=== PATIENT | female | born 1930 | race Caucasian/White ===

== ENCOUNTER 2022-04-26 18:03 | Inpatient (IN) | payer MEDICARE, OTHER ==
[~2022-04-26] VITALS: Ht 157.5 cm; Wt 52.2 kg
--- NOTE | 2022-04-26 18:05 | NUR ---
PT BIBA TO BED 10
[2022-04-26 18:07] VITALS: BP 143/91
[2022-04-26] MEDS ORDERED: ALBUTEROL 0.083% 2.5 MG/3 ML NEBU INH ONE (18:10)
--- NOTE | 2022-04-26 18:33 | NUR ---
FLU AND EUN SWABS COLLECTED AND HANDED TO TOOL INSPECTOR BERLIN
--- NOTE | 2022-04-26 18:38 | NUR ---
89/F BOWENJovita FROM [facility]. PER EMS STAFF CALLED 911 STATING PATIENT WITH SUDDEN ONSET OF SOB, PER EMS PATIENTS O2 89% ON ROOM AIR AND WAS PLACED ON 2L NC BRINGING O2 UP TO 96%. PATIENT SHAKES AND NODS HEAD TO ANSWER YES AND NO TO QUESTIONS, DENIES SOB, CP. PER EMS PATIENT NOT ON O2 AT BASELINE.
[2022-04-26 18:42] LABS: BASOPHILS # (AUTO) 0.1 K/uL (0.00-0.22); BASOPHILS % (AUTO) 1.1 % (0.0-2.0); EOSINOPHILS # (AUTO) 0.4 K/uL (0-0.4); EOSINOPHILS % (AUTO) 4.7 % (0.0-4.0); HEMATOCRIT 40.3 % (36-48); HEMOGLOBIN 13.7 g/dL (12.0-16.0); LYMPHOCYTES # (AUTO) 1.4 K/uL (2.5-16.5); LYMPHOCYTES % (AUTO) 14.8 % (20.5-51.1); MEAN CORPUSCULAR HEMOGLOBIN 31 pg (27-31); MEAN CORPUSCULAR HGB CONC 34 g/dL (33-37); MEAN CORPUSCULAR VOLUME 89.8 fL (80-94); MONOCYTES # (AUTO) 0.5 K/uL (0.8-1.0); MONOCYTES % (AUTO) 5.6 % (1.7-9.3); NEUTROPHILS # (AUTO) 6.9 K/uL (1.8-7.7); NEUTROPHILS % (AUTO) 73.8 % (42.2-75.2); PLATELET COUNT (AUTO) 347 K/uL (140-450); RED BLOOD CELL COUNT(AUTO) 4.49 MIL/uL (4.20-5.40); RED CELL DISTRIBUTION WIDTH 15.6 % (11.6-13.7); WHITE BLOOD COUNT (AUTO) 9.4 K/uL (4.8-10.8)
[2022-04-26] MEDS ORDERED: XALOS OP (18:50)
[2022-04-26] MEDS ORDERED: DOCU-299 PO (18:50)
[2022-04-26] MEDS ORDERED: CHOL1TAB11 PO (18:50)
[2022-04-26] MEDS ORDERED: BACL10TA4 PO (18:50)
[2022-04-26] MEDS ORDERED: SIMV-372 PO (18:50)
[2022-04-26] MEDS ORDERED: ACET-2619 PO (18:50)
[2022-04-26] MEDS ORDERED: METO25TE2 PO (18:50)
[2022-04-26] MEDS ORDERED: SENN-73 PO (18:50)
[2022-04-26] MEDS ORDERED: ALEN70TA85 PO (18:50)
[2022-04-26] MEDS ORDERED: ALBU3SOL83 IH (18:50)
[2022-04-26] MEDS ORDERED: OSC500 PO (18:50)
[2022-04-26] MEDS ORDERED: ASPI-1749 PO (18:50)
[2022-04-26] MEDS ORDERED: SYN.1 PO (18:50)
[2022-04-26 19:07] LABS: ALBUMIN 2.8 g/dL (3.4-5.0); ANION GAP 14.5 (8-16); ASPARTATE AMINOTRANSFERASE 33 U/L (15-37); CARBON DIOXIDE 23.5 mmol/L (21-32); CHLORIDE 95 mmol/L (98-107); CREATININE 0.8 mg/dL (0.6-1.3); GLUCOSE 156 mg/dL (74-106); SODIUM SERUM 129 mmol/L (136-145); TOTAL BILIRUBIN 0.6 mg/dL (0.0-1.0); UREA NITROGEN, BLOOD 19 mg/dL (7-18)
[2022-04-26] MEDS ORDERED: AZITHROMYCIN 500 MG in DEXTROSE 5% 250 ML IV ONE (19:15)
--- NOTE | 2022-04-26 19:17 | NUR ---
Pt report given to PHILOMENA ALDANA. Transfer of care at this time.
--- NOTE | 2022-04-26 19:21 | NUR ---
RT at bedside.
--- NOTE | 2022-04-26 19:28 | NUR ---
PLACED PT ON HFNC AT 30LPM 35% FIO2 DUE TO WOB. PT SPO2 IS 95%, WOB IMPROVING, WILL CONT TO MONITOR PT.
[2022-04-26] MEDS ORDERED: cefTRIAXone 1,000 MG VIAL ONE (19:29)
[2022-04-26 19:36] VITALS: BP 119/74
[2022-04-26] MEDS ORDERED: AZITHROMYCIN 500 MG INJ VIAL IV ONE (20:12)
[2022-04-26] MEDS ORDERED: DEXT 5% / NACL 0.9% 500 ML IV ONE (20:25)
[2022-04-26] MEDS ORDERED: MAG SULF 2000 MG/WATER PREMIX 50 ML IV PRN (20:30)
[2022-04-26] MEDS ORDERED: ACETAMINOPHEN 325 MG TAB PO PRN (20:30)
[2022-04-26] MEDS ORDERED: INSULIN LISPRO SLIDING SCALE 100 UNITS/ML VIAL SUBQ PRN (20:30)
[2022-04-26] MEDS ORDERED: MORPHINE SULFATE 2 MG/ML SYR IVP PRN (20:30)
[2022-04-26] MEDS ORDERED: ZOLPIDEM 10 MG TAB PO PRN (20:30)
[2022-04-26] MEDS ORDERED: LORazepam 2 MG/ML VIAL IVP PRN (20:30)
[2022-04-26] MEDS ORDERED: ONDANSETRON 4 MG/2 ML VIAL IVP PRN (20:30)
[2022-04-26] MEDS ORDERED: DEXTROSE 50% 50 ML SYR IVP PRN (20:30)
[2022-04-26] MEDS ORDERED: DOCUSATE SODIUM 100 MG GELCAP PO PRN (20:30)
[2022-04-26] MEDS ORDERED: POTASSIUM CHLORIDE 10 MEQ TABER PO PRN (20:30)
[2022-04-26] MEDS: BLOOD GLUCOSE MONITORING 1 DEV DEV FS SCH (21:39)
[2022-04-26 23:06] VITALS: BP 96/57
[2022-04-27 02:38] VITALS: BP 87/43
--- NOTE | 2022-04-27 02:40 | NUR ---
RT at bedside.
--- NOTE | 2022-04-27 05:07 | NUR ---
Pt noted with episode of incontinence to urine. Deisy care provided.
[2022-04-27] MEDS: BLOOD GLUCOSE MONITORING 1 DEV DEV FS SCH ×4 (07:30→21:00)
--- NOTE | 2022-04-27 07:30 | NUR ---
pt report received from ishmael casey. pt laying in bed aox2, calm and cooperative, denies any pain, pt connected to monitor w vss on high carleen.
--- NOTE | 2022-04-27 07:30 | NUR ---
Care endorsed to PHILOMENA Coates for continuity of care. Questions/concerns answered.
[2022-04-27] MEDS: LEVOTHYROXINE 0.1 MG TAB PO SCH (07:33)
--- NOTE | 2022-04-27 08:30 | NUR ---
RECIEVED PATIENT FROM ER. AWAKE ORIENTED X2. PATIENT BEDBOUND.
[2022-04-27] MEDS: ASPIRIN 81 MG TAB.CHEW PO SCH (10:06)
[2022-04-27 12:00] VITALS: BP 102/70
--- NOTE | 2022-04-27 15:01 | NUR ---
DC PLANNING ASSESSMENT COMPLETE PLEASE REFER TO ASSESSMENT FOR ADDITIONAL DETAILS PER NOTES PT HAS HX OF DEMENTIA THEREFORE, SW OUTREACHED TO [facility] TO GATHER COLLAT INFO. PT IS A 89 YR OLD FEMALE ADMITTED TO [facility] FROM HOME WITH DX OF ACUTE RESP FAILURE. PT HAS PAST MEDICAL HX OF HYPERTENSION, HYPERLIPIDEMIA, HYPOTHYROIDISM AND DEMENTIA. PT IS REPORTED TO BE WC BOUND AND REQUIRES ASSISTANCE WITH ADL'S THAT [facility] AIDS WITH PT IS REPORTED TO BE IN [facility] CARE WITH [facility], ADMISSION DATE 01/06/21 PAULETTE REPORTS DC PLAN IS FOR PT TO RETURN TO [facility]. ONCE STABLE Addendum: 04/27/22 at 1504 by Jil CARLISLE Amended: Links added.
[2022-04-27 16:00] VITALS: BP 123/100
--- NOTE | 2022-04-27 17:25 | NUR ---
PATIENT HAS BEEN SCREENED AND CATEGORIZED MODERATE NUTRITION RISK. PATIENT WILL BE SEEN WITHIN 3-5 DAYS OF ADMISSION. 04/29/ REVIEWED BY ANNEMARIE STOCKTON RD
--- NOTE | 2022-04-27 18:43 | NUR ---
PATIENT NIECE/PRIMARY CONTACT CALLED. PROPER INFORMATION EXCHANGED.
--- NOTE | 2022-04-27 19:20 | NUR ---
ENDORSED PT TO STRIP STAMP STRAIGHTENER NURSE FOR CONTINUITY OF CARE. PT STABLE AT THIS TIME.
--- NOTE | 2022-04-27 19:25 | NUR ---
RECEIVED PT FROM AM NURSE FOR CONTINUITY OF CARE.PT IS STABLE
[2022-04-27 20:00] VITALS: BP 124/70
[2022-04-27] MEDS: AZITHROMYCIN 500 MG in DEXTROSE 5% 250 ML IV SCH (20:57)
[2022-04-28] VITALS: BP 125/79
--- NOTE | 2022-04-28 01:00 | NUR ---
PATIENT ASLEEP, ALL SAFETY MEASURES IN PLACE, CALL LIGHT EITHIN EASY REACH
[2022-04-28 04:00] VITALS: BP 129/74
[2022-04-28] MEDS ORDERED: PIPERACILLIN/TAZOBACTAM 2.25 GM VIAL IV ONE (05:10)
[2022-04-28] MEDS: PIPERACILLIN/TAZOBACTAM 2.25 GM in DEXTROSE 5% 50 ML IV SCH ×3 (05:19→21:00)
[2022-04-28] MEDS: LEVOTHYROXINE 0.1 MG TAB PO SCH (06:16)
[2022-04-28] MEDS: BLOOD GLUCOSE MONITORING 1 DEV DEV FS SCH ×4 (06:59→20:59)
[2022-04-28 07:01] LABS: ANION GAP 10.6 (8-16); CARBON DIOXIDE 27.2 mmol/L (21-32); CHLORIDE 99 mmol/L (98-107); CREATININE 0.5 mg/dL (0.6-1.3); GLUCOSE 97 mg/dL (74-106); POTASSIUM 3.8 mmol/L (3.5-5.1); SODIUM SERUM 133 mmol/L (136-145); UREA NITROGEN, BLOOD 9 mg/dL (7-18)
[2022-04-28 07:20] LABS: BASOPHILS # (AUTO) 0.1 K/uL (0.00-0.22); BASOPHILS % (AUTO) 1.1 % (0.0-2.0); HEMATOCRIT 36.1 % (36-48); HEMOGLOBIN 11.9 g/dL (12.0-16.0); LYMPHOCYTES # (AUTO) 1.7 K/uL (2.5-16.5); LYMPHOCYTES % (AUTO) 22.3 % (20.5-51.1); MEAN CORPUSCULAR HEMOGLOBIN 30 pg (27-31); MEAN CORPUSCULAR HGB CONC 33 g/dL (33-37); MEAN CORPUSCULAR VOLUME 91.3 fL (80-94); MONOCYTES # (AUTO) 0.7 K/uL (0.8-1.0); MONOCYTES % (AUTO) 8.9 % (1.7-9.3); NEUTROPHILS # (AUTO) 4.1 K/uL (1.8-7.7); NEUTROPHILS % (AUTO) 54.7 % (42.2-75.2); PLATELET COUNT (AUTO) 226 K/uL (140-450); RED BLOOD CELL COUNT(AUTO) 3.95 MIL/uL (4.20-5.40); RED CELL DISTRIBUTION WIDTH 15.4 % (11.6-13.7)
--- NOTE | 2022-04-28 07:20 | NUR ---
ENDORSED PATIENT TO AM NURSE FOR CONTINUITY OF CARE. PT IS STABLE
--- NOTE | 2022-04-28 07:24 | NUR ---
RECIEVED PATIENT FROM THERMAL SURFACING MACHINE OPERATOR NURSE FOR CONTINUITY OF CARE
[2022-04-28 07:32] LABS: WHITE BLOOD COUNT (AUTO) 7.5 K/uL (4.8-10.8)
[2022-04-28 08:00] VITALS: BP 108/62
[2022-04-28] MEDS: ASPIRIN 81 MG TAB.CHEW PO SCH (08:58)
[2022-04-28 12:00] VITALS: BP 127/78
[2022-04-28] MEDS: HYDRAGUARD CREAM TP SCH (13:00)
--- NOTE | 2022-04-28 19:30 | NUR ---
ENDORSED PT TO COURT ORDERLY NURSE FOR CONTINUITY OF CARE. PT STABLE AT THIS TIME.
--- NOTE | 2022-04-28 19:35 | NUR ---
RECEIVED PT FROM AM NURSE FOR CONTINUITY OF CARE.PT IS STABLE
[2022-04-28] MEDS: ALBUTEROL SULFATE/IPRATROPIU 3 ML SOL IH SCH ×2 (20:19→23:58)
[2022-04-28] MEDS: BUDESONIDE 0.5 MG/2 ML NEBU INH SCH (20:20)
[2022-04-28] MEDS: AZITHROMYCIN 500 MG in DEXTROSE 5% 250 ML IV SCH (21:00)
--- NOTE | 2022-04-28 23:59 | NUR ---
PT SATURATION 97% ON ROOM AIR NO WHEEZES, PT ASKED "TO NOT HAVE THE TREATMENT AND ATTEMPTED TO REMOVE MASK DURING EARLIER TREATMENT." WILL CONTINUE TO MONITOR
[2022-04-29] MEDS: HYDRAGUARD CREAM TP SCH ×2 (01:41→13:16)
[2022-04-29] MEDS: PIPERACILLIN/TAZOBACTAM 2.25 GM in DEXTROSE 5% 50 ML IV SCH ×3 (05:02→21:00)
[2022-04-29] MEDS: LEVOTHYROXINE 0.1 MG TAB PO SCH (06:09)
[2022-04-29] MEDS: BLOOD GLUCOSE MONITORING 1 DEV DEV FS SCH ×4 (06:51→21:42)
[2022-04-29 07:28] LABS: BASOPHILS # (AUTO) 0.1 K/uL (0.00-0.22); BASOPHILS % (AUTO) 1.1 % (0.0-2.0); EOSINOPHILS # (AUTO) 0.8 K/uL (0-0.4); EOSINOPHILS % (AUTO) 14.2 % (0.0-4.0); HEMATOCRIT 35.2 % (36-48); HEMOGLOBIN 12.1 g/dL (12.0-16.0); LYMPHOCYTES # (AUTO) 1.3 K/uL (2.5-16.5); LYMPHOCYTES % (AUTO) 22.4 % (20.5-51.1); MEAN CORPUSCULAR HEMOGLOBIN 31 pg (27-31); MEAN CORPUSCULAR HGB CONC 34 g/dL (33-37); MEAN CORPUSCULAR VOLUME 90.2 fL (80-94); MONOCYTES # (AUTO) 0.5 K/uL (0.8-1.0); MONOCYTES % (AUTO) 9.1 % (1.7-9.3); NEUTROPHILS # (AUTO) 3.2 K/uL (1.8-7.7); NEUTROPHILS % (AUTO) 53.2 % (42.2-75.2); PLATELET COUNT (AUTO) 314 K/uL (140-450); RED BLOOD CELL COUNT(AUTO) 3.91 MIL/uL (4.20-5.40); RED CELL DISTRIBUTION WIDTH 15.3 % (11.6-13.7)
[2022-04-29 07:54] LABS: ANION GAP 13.4 (8-16); CARBON DIOXIDE 26.3 mmol/L (21-32); CHLORIDE 102 mmol/L (98-107); CREATININE 0.7 mg/dL (0.6-1.3); GLUCOSE 105 mg/dL (74-106); POTASSIUM 3.7 mmol/L (3.5-5.1); SODIUM SERUM 138 mmol/L (136-145); UREA NITROGEN, BLOOD 11 mg/dL (7-18)
[2022-04-29 08:00] VITALS: BP 106/59
[2022-04-29] MEDS: ASPIRIN 81 MG TAB.CHEW PO SCH (09:12)
[2022-04-29] MEDS ORDERED: AZIT250T11 PO (10:24)
[2022-04-29 12:00] VITALS: BP 100/55
[2022-04-29 16:00] VITALS: BP 110/53
--- NOTE | 2022-04-29 16:10 | NUR ---
RECEIVED ORDER FOR PT TO GO BACK TO [facility]. FAXED MULTIPLE TIMES TODAY [facility] LOCATED AT [address] [place] [phone]. TI AT [facility] WHO SAID THEY DIDN'T RECEIVE ANY BUT THE LAST ONE SENT AGAIN AT 1530. AND THAT THE DOA WILL REVIEW IT TOMORROW WHEN THEY GET IN. [facility] GAVE TRANSPORTATION AUTH#[id number]. WILL CONTACT TI FIRST THING 04/30/2022 AT 0900. Addendum: 04/30/22 at 1056 by MARIAH VARGAS SPOKE WITH TI AT [facility] LOCATED AT [address] [place] [phone]. PT WAS ACCEPPTED BACK AND WILL BE GOING TO ROOM 122-B UNDER DR GUZMAN. PER LYNDSAY AT [facility] TRANSPORTATION IS SUPPOSED TO BE SET UP WITH F[facility]. BUT WHEN I CALLED TO SETUP TRANSPORTATION WITH [facility] MARGARETH INFORMED ME THAT SINCE STARTING LAST WEEK THEY STOPPED TAKING [facility] GURNEY TRANSPORTATION. CALLED TI AT [facility] TO SEE IF SHE WOULD BE ABLE TO HELP US OUT AND PROVIDE TRANSPORTATION BUT SHE SAID NO. TRANSPORTATION SET UP WITH STACEY AT [facility] TRANSPORTATION FOR A GURNEY TRANSPORTATION WITH A MANUFACTURING DIRECTOR TIME STILL UNKNOWN STACEY STATED TO KEEP CALLING FOR UPDATES AND IT WOULDN'T BE A SAME DAY MANUFACTURING DIRECTOR. MOTORCYCLE SALES ASSOCIATE HERMNIIO WILL CONTACT LYNDSAY AND ASK WHY SHE WOULDN'T BE ABLE TO GO TODAY WHEN SHE IS A DISCHARGED PATIENT. Addendum: 04/30/22 at 1405 by MARIAH VARGAS CM CANCELED TRANSPORTATION WITH [facility]. WAS ABLE TO GET TRANSPORTATION WITH [facility] WITH MANUFACTURING DIRECTOR TIME FOR [phone]. SPOKE WITH ALEX DASILVA AWARE OF THE ABOVE INFORMATION.
[2022-04-29] MEDS ORDERED: CHLORHEXADINE GLUC 2% CLOTH TP SCH (17:00)
[2022-04-29] MEDS ORDERED: MUPIROCIN CA NASAL 2% 1GM TUBE NS SCH (17:00)
[2022-04-29] MEDS: BUDESONIDE 0.5 MG/2 ML NEBU INH SCH ×2 (17:20→19:27)
[2022-04-29] MEDS: ALBUTEROL SULFATE/IPRATROPIU 3 ML SOL IH SCH ×2 (17:21→19:24)
--- NOTE | 2022-04-29 19:34 | NUR ---
RECEIVED REPORT FROM DAY SHIFT NURSE FOR CONTINUITY OF CARE. PT IS AWAKE, ALERT AND ORIENTED X2. NO COMPLAINTS OF PAIN AT THIS TIME. WAS ON HIFLOW BUT IS NOW ON ROOM AIR WITH NO SIGNS OF DISTRESS NOTED. PT REMOVED IV, WILL ATTEMPT TO START A NEW ONE. BRUISING ON UPPER EXTREMITIES BUT OTHERWISE SKIN IS INTACT. WILL MONITOR THROUGHOUT SHIFT.
[2022-04-29 20:00] VITALS: BP 117/63
--- NOTE | 2022-04-29 20:00 | NUR ---
Patient's Plan of Care was discussed and reviewed with ASSISTANT CHIEF ENGINEER: SARANYA TOBIAS
[2022-04-29] MEDS: AZITHROMYCIN 500 MG in DEXTROSE 5% 250 ML IV SCH (22:00)
--- NOTE | 2022-04-29 22:00 | NUR ---
NEW IV WAS INSERTED ON LEFT WRIST, 22 GAUGE, INTACT AND PATENT. WILL CONTINUE TO MONITOR.
[2022-04-30] VITALS: BP 125/60
[2022-04-30] MEDS ORDERED: ZOLPIDEM 10 MG TAB ONE (00:06)
--- NOTE | 2022-04-30 00:44 | NUR ---
PT EXPERIENCING RESTLESS AND DIFFICULTY SLEEPING. ORDER FOR AMBIEN 10MG ON THE EMAR, BUT DID NOT SHOW IN THE PRN MEDICATIONS ON THE PIXUS, SO MEDICATION WAS PULLED FROM THE PIXUS USING THE STOCKED MEDS OPTION. MEDICATION ADMINISTERED, NO SIGNS OF DISTRESS NOTED, WILL CONTINUE TO MONITOR.
[2022-04-30] MEDS: ALBUTEROL SULFATE/IPRATROPIU 3 ML SOL IH SCH ×2 (01:00→07:44)
[2022-04-30] MEDS: HYDRAGUARD CREAM TP SCH ×2 (01:46→12:04)
[2022-04-30 04:00] VITALS: BP 145/73
[2022-04-30] MEDS: PIPERACILLIN/TAZOBACTAM 2.25 GM in DEXTROSE 5% 50 ML IV SCH ×2 (05:22→12:05)
[2022-04-30 06:05] LABS: BASOPHILS # (AUTO) 0.1 K/uL (0.00-0.22); BASOPHILS % (AUTO) 0.8 % (0.0-2.0); EOSINOPHILS # (AUTO) 0.7 K/uL (0-0.4); EOSINOPHILS % (AUTO) 9.9 % (0.0-4.0); HEMATOCRIT 37.4 % (36-48); HEMOGLOBIN 12.2 g/dL (12.0-16.0); LYMPHOCYTES # (AUTO) 1.6 K/uL (2.5-16.5); LYMPHOCYTES % (AUTO) 20.6 % (20.5-51.1); MEAN CORPUSCULAR HEMOGLOBIN 30 pg (27-31); MEAN CORPUSCULAR HGB CONC 33 g/dL (33-37); MEAN CORPUSCULAR VOLUME 90.7 fL (80-94); MONOCYTES # (AUTO) 0.8 K/uL (0.8-1.0); MONOCYTES % (AUTO) 10.3 % (1.7-9.3); NEUTROPHILS # (AUTO) 4.4 K/uL (1.8-7.7); NEUTROPHILS % (AUTO) 58.4 % (42.2-75.2); PLATELET COUNT (AUTO) 303 K/uL (140-450); RED BLOOD CELL COUNT(AUTO) 4.12 MIL/uL (4.20-5.40); RED CELL DISTRIBUTION WIDTH 15.4 % (11.6-13.7); WHITE BLOOD COUNT (AUTO) 7.6 K/uL (4.8-10.8)
[2022-04-30 06:29] LABS: ANION GAP 12.4 (8-16); CARBON DIOXIDE 25.1 mmol/L (21-32); CHLORIDE 103 mmol/L (98-107); CREATININE 0.6 mg/dL (0.6-1.3); GLUCOSE 119 mg/dL (74-106); POTASSIUM 3.5 mmol/L (3.5-5.1); SODIUM SERUM 137 mmol/L (136-145); UREA NITROGEN, BLOOD 11 mg/dL (7-18)
[2022-04-30] MEDS: BLOOD GLUCOSE MONITORING 1 DEV DEV FS SCH ×2 (06:33→12:03)
[2022-04-30] MEDS: LEVOTHYROXINE 0.1 MG TAB PO SCH (06:49)
--- NOTE | 2022-04-30 07:21 | NUR ---
RECEIVED REPORT FROM UNIX ANALYST NURSE FOR CONTINUITY OF CARE, POC DISCUSSED. PT IS ASLEEP IN BED ON ROOM AIR WITH CHEST RISING AND FALLING EVEN AND UNLABORED. ALL SAFETY MEASURES IN PLACE, CALL LIGHT WITHIN REACH.
--- NOTE | 2022-04-30 07:24 | NUR ---
ENDORSED TO DAY SHIFT NURSE FOR CONTINUITY OF CARE, PT IS STABLE AT THIS TIME.
[2022-04-30 08:00] VITALS: BP 114/74
[2022-04-30] MEDS: ASPIRIN 81 MG TAB.CHEW PO SCH ×3 (09:00→09:54)
[2022-04-30 12:00] VITALS: BP 110/68
[2022-04-30] MEDS: BUDESONIDE 0.5 MG/2 ML NEBU INH SCH (12:19)
--- NOTE | 2022-04-30 14:21 | NUR ---
CALLED SHELL [facility]DON AND GAVE FULL REPORT, ALL QUESTIONS ANSWERED. ATTEMPTED TO CALL BROWN MARAVILLA, NO ANSWER. ATTEMPTED TO CALL JEAN CARLOS, VOICEMAIL MESSAGE LEFT REGARDING PTS STATUS AND RETURN TO FACILITY WITH ROOM NUMBER. ALL DISCHARGE PAPERWORK COMPLETED, ALL BELONGINGS AT BEDSIDE WITH PATIENT. WAITING ON TRANSPORTATION.
--- NOTE | 2022-04-30 15:24 | NUR ---
PT WAS PICKED UP BY TIFF FROM [facility]. PT STABLE, IV REMOVED. TELE BOX PLACED BACK IN MONITOR ROOM. ALL ADMISSION PAPER WORK AND PERSONNEL BELONGINGS GIVEN TO [facility].
== END 2022-04-30 15:25 | DRG 871 ==
LOC: MED 18:03 → MTU 20:25 → MMU 04-27 08:30
PROVIDERS: ADMIT Family Medicine; ATTEND Family Medicine
PROC: 5A0935A Assistance with Respiratory Ventilation, Less than 24 Consecutive Hours, High Flow/Velocity Cannula (ICD-10-PCS; principal; 2022-04-26)
DX: A41.9 Sepsis, unspecified organism (principal); J69.0 Pneumonitis due to inhalation of food and vomit; J96.01 Acute respiratory failure with hypoxia; J90 Pleural effusion, not elsewhere classified; E87.1 Hypo-osmolality and hyponatremia; F03.90 Unspecified dementia, unspecified severity, without behavioral disturbance, psychotic disturbance, mood disturbance, and anxiety; I10 Essential (primary) hypertension; Z66 Do not resuscitate; J84.10 Pulmonary fibrosis, unspecified; Z20.822 Contact with and (suspected) exposure to COVID-19; E03.9 Hypothyroidism, unspecified; E78.5 Hyperlipidemia, unspecified; I25.2 Old myocardial infarction; Z79.82 Long term (current) use of aspirin; Z79.899 Other long term (current) drug therapy
CPT/HCPCS: 36415; 71045; 71275; 80048; 80053; 82948; 83605; 83735; 83880; 84484; 85025; 85379; 87040; 87081; 92526; 94640; 96365; 96367; 99291; J0456; J0696; J1815; J2060; J2543; J7060; J7613; J7626; Q9967